=== PATIENT | female | born 1945 | race Caucasian/White ===

== ENCOUNTER 2024-08-25 18:29 | Observation (INO) ==
--- NOTE | 2024-08-25 18:46 | Emergency Department Note ---
Impression & Plan Syncope, Hypertension, Hypokalemia ED Provider Note NAME: MARIA DEL CARMEN RHODES AGE: 79 SEX: F : 1945 ARRIVES VIA: Ambulance INFORMANT: Patient ED PROVIDER(S): Maged Uribe DO CHIEF COMPLAINT: Syncope x 2 HPI: Patient is an 79-year-old female with a past medical history of hyperlipidemia and hypertension who presents to the ER for syncope x 2. Patient was sitting at dinner when this occurred. She notes overall she was not feeling well and per report of family she passed out twice. She denies any falls or trauma. No headache or change or loss of vision. No chest pain or shortness of breath preceding or following this incident. No belly pain. No nausea, vomiting, or diarrhea. No dysuria, urgency, or frequency. No other exacerbating or remitting factors. She did not feel sick to her stomach like she had to vomit or like she was going to get sick. She did not have to go to the bathroom. ADDITIONAL HISTORY OBTAINED: Per HPI Chronic Medical/Social Conditions Affecting Care: Per HPI PAST MEDICAL HISTORY:See Below PAST SURGICAL HISTORY:See Below FAMILY HISTORY:See Below SOCIAL HISTORY:See Below HOME MEDICATIONS:See Below ALLERGIES:See Below VITALS:See Below PHYSICAL EXAMINATION: GENERAL: Sitting up in bed, alert, well appearing, well nourished, no distress, non-toxic EYE EXAM: normal conjunctiva. PERRL and EOM's intact. OROPHARYNX: no exudate, no erythema, lips, buccal mucosa, and tongue normal and mucous membranes are moist NECK: supple, no nuchal rigidity, no adenopathy, non-tender LUNGS: Clear to auscultation. Normal chest wall mechanics HEART: no murmurs, S1 normal and S2 normal ABDOMEN: abdomen soft, non-tender, normo-active bowel sounds, no masses, no rebound or guarding. BACK: Back is symmetrical on inspection and there is no deformity, no midline tenderness, no CVA tenderness. SKIN: no rashes and no bruising UPPER EXTREMITIES: upper extremities are grossly normal. LOWER EXTREMITIES: No pitting edema. NEURO EXAM: Normal sensorium, cranial nerves II-XII intact, normal speech, no weakness of arms, no weakness of legs. No drift. Finger to nose intact. Gross sensation intact. MEDICAL DECISION MAKING: Patient is an 79-year-old female who presents ER for the above-stated complaint. IV was established and blood work was obtained. Labs show no significant leukocytosis or anemia. BMP with mild hypokalemia at 3.3. LFTs and bilirubin were unremarkable. Troponin was negative. Lipase was normal. Chest x-ray was clean. Patient was completely neurologically intact. With her age and 2 syncopal events without any real prodromal symptoms she was discussed with the hospitalist for further evaluation management treatment. Consults/Care Managements Discussions: Per [facility] Triage Nursing notes reviewed. Limited review of prior medical records performed Vital Signs: reviewed and remarkable for no significant abnormalities Differential diagnosis: Differential diagnosis includes etiologies such as vasovagal event, infection, hypoglycemia, electrolyte abnormalities, cardiac sources, intracerebral event, toxicologic, neurologic, as well as others were entertained. ER treatment provided: See below Diagnostics interpreted by me include EKG and cardiac monitoring as listed below: -Cardiac Monitoring: An order was placed for continuous cardiac monitoring. The monitor shows a rate of 80 with sinus rhythm. -ECG: Sinus rhythm rate 75 Normal axis No PVCs QTc 415 -Laboratory studies:Interpreted by me as stated above in MDM and shown below. Imaging studies: Xrays: As interpreted by me: Portable AP upright 1 view of the chest shows no focal infiltrate CTs show: none Procedures:none Critical Care: None Past Med/Surg History Problem List (Updated 08/26/24 @ 00:01 by Maged Uribe DO) Hypokalemia (Acute) Hypertension (Acute) Syncope (Acute) Social History Smoking Status: Former smoker Tobacco Type: Cigarettes Hx Alcohol Use: Yes Alcohol type: wine Hx Substance Use: No Preferred Language: Peruvian Communication Ability: Effective Investment Officer Required: No Beliefs That Will Affect Care: None Current Living Situation: Spouse Feels Safe at Home: Yes Safety Concerns: Feels Safe At This Time Assistive Devices: None Allergies Allergies Allergy/AdvReac Type Severity Reaction Status Date / Time No Known Allergies Allergy Verified 08/25/24 19:18 Home Meds Home Medications Medication Instructions Recorded Confirmed amlodipine 5 mg tablet 5 mg PO HS 08/25/24 08/25/24 atorvastatin 40 mg tablet 40 mg PO HS 08/25/24 08/25/24 cholecalciferol (vitamin D3) 25 25 mcg PO DAILY 08/25/24 08/25/24 mcg (1,000 unit) capsule (Vitamin D3) lisinopril 20 1 tab PO QAM 08/25/24 08/25/24 mg-hydrochlorothiazide 25 mg tablet Results & Data (ED) Vital Signs Vital Signs - 24 hr 08/25/24 18:35 08/25/24 18:39 08/25/24 20:12 Temperature 36.8 C Temperature Source Oral Pulse Rate 82 72 84 Pulse Rate from SpO2 Sensor 85 Respiratory Rate 18 18 Blood Pressure 140/104 H 140/79 Blood Pressure Mean 116 99 Pulse Oximetry 96 98 Oxygen Delivery Method Room Air Sepsis Recent Fever Within 48 Hours No Sepsis New/Unexplained Change in Mental Status No Sepsis Action Taken by Nursing No Action Required Laboratory Data 08/25/24 18:50 08/25/24 18:50 Lab Results 08/25/24 Range/Units 18:50 WBC 8.98 (4.8-10.8) K/ul RBC 4.67 (4.20-5.40) M/uL Hgb 13.5 (12.0-16.0) g/dl Hct 41.0 (37.0-47.0) % MCV 87.8 (80.0-100.0) fL MCH 28.9 (25.0-34.0) pg MCHC 32.9 (32.0-36.0) g/dL RDW Std Deviation 45.5 (36.4-46.3) fL RDW Coeff of Lachelle 14.1 (11.5-14.5) % Plt Count 302 (130-400) K/uL MPV 9.6 (9.4-12.4) fL Immature Gran % (Auto) 0.2 % Neut % (Auto) 57.3 % Lymph % (Auto) 31.3 % [place] % (Auto) 6.0 % Eos % (Auto) 3.6 % Baso % (Auto) 1.6 % Neut # (Auto) 5.15 (1.40-6.50) K/uL Lymph # (Auto) 2.81 (1.20-3.40) K/uL [place] # (Auto) 0.54 (0.11-0.59) K/uL Eos # (Auto) 0.32 (0.00-0.50) K/uL Baso # (Auto) 0.14 (0.00-0.20) K/uL Immature Gran # (Auto) 0.02 (0.01-0.20) K/uL Sodium 143 (136-145) mmol/L Potassium 3.3 L (3.5-5.1) mmol/L Chloride 106 (98-107) mmol/L Carbon Dioxide 28 (21-32) mmol/L Anion Gap 9 (3-11) BUN 29 H (6-23) mg/dl Creatinine 0.80 (0.6-1.2) mg/dl Est Cr Clr Drug Dosing 49.6 ml/min eGFR 73.98 BUN/Creatinine Ratio 36.3 H (10-20) Glucose 126 H (70-99(Fasting)) mg/dl Calcium 9.9 (8.6-10.3) mg/dl Total Bilirubin 0.6 (0.2-1.0) mg/dl AST 18 (13-39) U/L ALT 13 (7-52) U/L Alkaline Phosphatase 65 (34-104) U/L Troponin I High Sens 3.3 (0-14) pg/ml Total Protein 7.2 (6.0-8.3) gm/dl Albumin 4.2 (3.4-5.0) gm/dl Globulin 3.0 (2.5-4.0) gm/dl Albumin/Globulin Ratio 1.4 (0.9-2) Lipase 27 (11-82) U/L Administered Medications Amlodipine Besylate (Amlodipine Besylate 5 Mg Tab) 5 mg PO HS EMERSON Stop: 09/24/24 21:59 Last Admin: 08/25/24 23:43 Dose: 5 mg Documented By: JARRETT Atorvastatin Calcium (Atorvastatin 40 Mg Tab) 40 mg PO HS EMERSON Stop: 09/24/24 21:59 Last Admin: 08/25/24 23:43 Dose: 40 mg Documented By: JARRETT Sodium Chloride (Nss) 1,000 mls @ 80 mls/hr IV .[id number] EMERSON Stop: 08/26/24 10:29 Last Admin: 08/25/24 23:42 Dose: 80 mls/hr Documented By: JARRETT Discontinued Medications Potassium Chloride (Potassium Chloride Crtab 20 Meq Tabcr) 40 meq PO NOW STA Stop: 08/25/24 20:56 Last Admin: 08/25/24 21:16 Dose: 40 meq Documented By: LATONIAB Imaging Data Radiologist's Impression: Chest X-Ray 08/25/24 18:36 EXAM: Radiograph of the Chest 1 View INDICATION: Pain TECHNIQUE: Frontal view of the chest. COMPARISON: No relevant prior studies available. FINDINGS: Lungs and pleural spaces: Shallow inspiration with minimal vascular crowding. No pulmonary edema or consolidation. No pleural effusion or pneumothorax. Heart: Shape and configuration within normal limits allowing for technique. Mediastinum: Normal contour. Bones/joints: Degenerative changes noted in the scoliotic spine. No acute osseous abnormality noted. Soft tissues: No abnormality noted. No radiopaque foreign body noted. Vasculature: Ectatic aorta with mild calcification in the arch. Upper abdomen: No abnormality noted. IMPRESSION: No acute cardiopulmonary disease. ACT 112: N/A Electronically signed by Shakira Gentile 08-25-2024 7:46 PM Discharge Plan Visit Data Chief Complaint: Syncope Stated Complaint: SYNCOPE ED Provider: Maged Uribe Discharge Problem: Syncope, Hypertension, Hypokalemia Patient Disposition: Admitted As Inpatient Condition: Fair Discharge Instructions Interventions: ED Discharge Assessment Last Done: 08/25/24 21:17 Discharge Problem: Syncope Qualifiers: Syncope type: unspecified Qualified Code(s): R55 - Syncope and collapse Hypertension Qualifiers: Hypertension type: unspecified Qualified Code(s): I10 - Essential (primary) hypertension
[2024-08-25 19:03] LABS: Basophils # (auto) 0.14 K/uL (0.00-0.20); Basophils % (auto) 1.6 %; Eosinophils # (auto) 0.32 K/uL (0.00-0.50); Eosinophils % (auto) 3.6 %; Hemoglobin 13.5 g/dl (12.0-16.0); Immature Granulocytes # (auto) 0.02 K/uL (0.01-0.20); Immature Granulocytes % (auto) 0.2 %; Lymphocytes # (auto) 2.81 K/uL (1.20-3.40); Lymphocytes % (auto) 31.3 %; Mean Corpuscular Hemoglobin 28.9 pg (25.0-34.0); Mean Corpuscular Hgb Conc 32.9 g/dL (32.0-36.0); Mean Corpuscular Volume 87.8 fL (80.0-100.0); Mean Platelet Volume 9.6 fL (9.4-12.4); Monocytes # (auto) 0.54 K/uL (0.11-0.59); Neutrophils # (auto) 5.15 K/uL (1.40-6.50); Neutrophils % (auto) 57.3 %; Platelet Count 302 K/uL (130-400); RDW Coefficient of Variation 14.1 % (11.5-14.5); RDW Standard Deviation 45.5 fL (36.4-46.3); Red Blood Count 4.67 M/uL (4.20-5.40); White Blood Count 8.98 K/ul (4.8-10.8)
[2024-08-25 19:20] LABS: Albumin Globulin Ratio 1.4 (0.9-2); Albumin Level 4.2 gm/dl (3.4-5.0); BUN Creatinine Ratio 36.3 (10-20); Bilirubin,Total 0.6 mg/dl (0.2-1.0); Calcium 9.9 mg/dl (8.6-10.3); Creatinine Clr Calc Pharmacy 49.6 ml/min; Potassium 3.3 mmol/L (3.5-5.1); Total Protein 7.2 gm/dl (6.0-8.3)
[2024-08-25 19:27] LABS: Troponin I High Sensitivity 3.3 pg/ml (0-14)
--- NOTE | 2024-08-25 19:47 | XRay Report ---
EXAM: Radiograph of the Chest 1 View INDICATION: Pain TECHNIQUE: Frontal view of the chest. COMPARISON: No relevant prior studies available. FINDINGS: Lungs and pleural spaces: Shallow inspiration with minimal vascular crowding. No pulmonary edema or consolidation. No pleural effusion or pneumothorax. Heart: Shape and configuration within normal limits allowing for technique. Mediastinum: Normal contour. Bones/joints: Degenerative changes noted in the scoliotic spine. No acute osseous abnormality noted. Soft tissues: No abnormality noted. No radiopaque foreign body noted. Vasculature: Ectatic aorta with mild calcification in the arch. Upper abdomen: No abnormality noted. IMPRESSION: No acute cardiopulmonary disease. ACT 112: N/A Electronically signed by Shakira Gentile 08-25-2024 7:46 PM
--- NOTE | 2024-08-25 20:48 | History & Physical Report ---
Date of Service August 25, 2024 Assessment & Plan (1) Syncope: Plan: 79-year-old female with past medical history significant for hypertension, hyperlipidemia comes with syncope. Patient is from [place]. She is visiting [employer] for her granddaughter's graduation. Patient says last night her defibrillator went off couple of times and she could not sleep well. And in the morning around 9 AM they drove to [place] for about 4 hours. She thinks did not drink much water. She think she was tired. Around 5:30 PM she sat down for eating when she felt lightheaded and did not feel good. She leaned forward and passed out. Patient's says her daughter thought that she passed out twice for few 5 seconds each. When she came back she was fine.. She was answering all questions. She was able to walk to the stretcher. Currently feeling better. During the episode no chest pain or palpitations. No shortness of breath. No nausea. Currently no dizziness. Vision is okay. No earache. No runny nose. No sore throat. No cough. Eating and drinking okay. No abdominal pain. No rash. Normal bowel and bladder movements. Hemodynamics are okay. Syncope EKG okay Labs okay except for mild hypokalemia Will monitor on telemetry Gentle fluids Check orthostatics Will follow serial enzymes and echo Cardiac consult in a.m. Hypertension Continue home medications of amlodipine and lisinopril/hydrochlorothiazide Will monitor Hypokalemia Potassium 3.3 Will replace Follow labs Hyperlipidemia On statin DVT prophylaxis SCDs Disposition Observation telemetry Full code History of Present Illness Chief Complaint: Syncope Primary Care Provider: Laron Wright 79-year-old female with past medical history significant for hypertension, hyperlipidemia comes with syncope. Patient is from [place]. She is visiting [employer] for her granddaughter's graduation. Patient says last night her defibrillator went off couple of times and she could not sleep well. And in the morning around 9 AM they drove to [place] for about 4 hours. She thinks did not drink much water. She think she was tired. Around 5:30 PM she sat down for eating when she felt lightheaded and did not feel good. She leaned forward and passed out. Patient's says her daughter thought that she passed out twice for few 5 seconds each. When she came back she was fine.. She was answering all questions. She was able to walk to the stretcher. Currently feeling better. During the episode no chest pain or palpitations. No shortness of breath. No nausea. Currently no dizziness. Vision is okay. No earache. No runny nose. No sore throat. No cough. Eating and drinking okay. No abdominal pain. No rash. Normal bowel and bladder movements. Hemodynamics are okay. Past medical history as mentioned above Past surgical history. Right carpal tunnel surgery. Social history. Smoked 5 to 6 cigarettes daily for 37 years. Quit smoking 27 years ago. Alcohol occasional. Family history. Mother had hypertension. Stroke. Obesity. Allergies Allergy/AdvReac Type Severity Reaction Status Date / Time No Known Allergies Allergy Verified 08/25/24 19:18 Home Medications Medication Instructions Recorded Confirmed Type amlodipine 5 mg tablet 5 mg PO HS 08/25/24 08/25/24 History atorvastatin 40 mg tablet 40 mg PO HS 08/25/24 08/25/24 History cholecalciferol (vitamin D3) 25 25 mcg PO DAILY 08/25/24 08/25/24 History mcg (1,000 unit) capsule (Vitamin D3) lisinopril 20 1 tab PO QAM 08/25/24 08/25/24 History mg-hydrochlorothiazide 25 mg tablet Past Med/Surg History Problem List (Updated 08/26/24 @ 00:01 by Maged Uribe DO) Hypokalemia (Acute) Hypertension (Acute) Syncope (Acute) Social History Smoking Status: Former smoker Tobacco Type: Cigarettes Hx Alcohol Use: Yes Alcohol type: wine Hx Substance Use: No Preferred Language: Polish Communication Ability: Effective Chain Sales Consultant Required: No Beliefs That Will Affect Care: None Current Living Situation: Spouse Feels Safe at Home: Yes Safety Concerns: Feels Safe At This Time Assistive Devices: None Review of Systems Review of Systems: All systems reviewed & are unremarkable except as noted in HPI & below Physical Exam Physical Exam: General- Not in distress. Head- atraumatic Eyes- PERRL. ENT- oropharynx clear Neck- supple, no JVD. Lungs- clear to auscultation no wheezing or crackles Heart- regular rate and rhythm; no murmur, no gallop. Abdomen- normal bowel sounds, soft, nontender, no distension Extremities- no pretibial edema, no erythema seen Neuro- alert, oriented PERRL, no facial palsy; no dysarthria; moves extremities Results & Data Results & Data Vital Signs (Past 12 Hours) Vital Signs Temp Pulse Resp BP Pulse Ox O2 Del Method 08/25/24 18:39 72 08/25/24 18:35 36.8 C 82 18 140/104 H 96 Room Air Diagnostic Findings Laboratory Results WBC 8.98 K/ul (4.8-10.8) 08/25/24 18:50 RBC 4.67 M/uL (4.20-5.40) 08/25/24 18:50 Hgb 13.5 g/dl (12.0-16.0) 08/25/24 18:50 Hct 41.0 % (37.0-47.0) 08/25/24 18:50 MCV 87.8 fL (80.0-100.0) 08/25/24 18:50 MCH 28.9 pg (25.0-34.0) 08/25/24 18:50 MCHC 32.9 g/dL (32.0-36.0) 08/25/24 18:50 RDW Std Deviation 45.5 fL (36.4-46.3) 08/25/24 18:50 RDW Coeff of Lachelle 14.1 % (11.5-14.5) 08/25/24 18:50 Plt Count 302 K/uL (130-400) 08/25/24 18:50 MPV 9.6 fL (9.4-12.4) 08/25/24 18:50 Immature Gran % (Auto) 0.2 % 08/25/24 18:50 Neut % (Auto) 57.3 % 08/25/24 18:50 Lymph % (Auto) 31.3 % 08/25/24 18:50 [place] % (Auto) 6.0 % 08/25/24 18:50 Eos % (Auto) 3.6 % 08/25/24 18:50 Baso % (Auto) 1.6 % 08/25/24 18:50 Neut # (Auto) 5.15 K/uL (1.40-6.50) 08/25/24 18:50 Lymph # (Auto) 2.81 K/uL (1.20-3.40) 08/25/24 18:50 [place] # (Auto) 0.54 K/uL (0.11-0.59) 08/25/24 18:50 Eos # (Auto) 0.32 K/uL (0.00-0.50) 08/25/24 18:50 Baso # (Auto) 0.14 K/uL (0.00-0.20) 08/25/24 18:50 Immature Gran # (Auto) 0.02 K/uL (0.01-0.20) 08/25/24 18:50 Sodium 143 mmol/L (136-145) 08/25/24 18:50 Potassium 3.3 mmol/L (3.5-5.1) L 08/25/24 18:50 Chloride 106 mmol/L (98-107) 08/25/24 18:50 Carbon Dioxide 28 mmol/L (21-32) 08/25/24 18:50 Anion Gap 9 (3-11) 08/25/24 18:50 BUN 29 mg/dl (6-23) H 08/25/24 18:50 Creatinine 0.80 mg/dl (0.6-1.2) 08/25/24 18:50 Est Cr Clr Drug Dosing 49.6 ml/min 08/25/24 18:50 eGFR 73.98 08/25/24 18:50 BUN/Creatinine Ratio 36.3 (10-20) H 08/25/24 18:50 Glucose 126 mg/dl (70-99(Fasting)) H 08/25/24 18:50 Calcium 9.9 mg/dl (8.6-10.3) 08/25/24 18:50 Total Bilirubin 0.6 mg/dl (0.2-1.0) 08/25/24 18:50 AST 18 U/L (13-39) 08/25/24 18:50 ALT 13 U/L (7-52) 08/25/24 18:50 Alkaline Phosphatase 65 U/L (34-104) 08/25/24 18:50 Troponin I High Sens 3.3 pg/ml (0-14) 08/25/24 18:50 Total Protein 7.2 gm/dl (6.0-8.3) 08/25/24 18:50 Albumin 4.2 gm/dl (3.4-5.0) 08/25/24 18:50 Globulin 3.0 gm/dl (2.5-4.0) 08/25/24 18:50 Albumin/Globulin Ratio 1.4 (0.9-2) 08/25/24 18:50 Lipase 27 U/L (11-82) 08/25/24 18:50 Impressions Chest X-Ray 08/25/24 18:36 EXAM: Radiograph of the Chest 1 View INDICATION: Pain TECHNIQUE: Frontal view of the chest. COMPARISON: No relevant prior studies available. FINDINGS: Lungs and pleural spaces: Shallow inspiration with minimal vascular crowding. No pulmonary edema or consolidation. No pleural effusion or pneumothorax. Heart: Shape and configuration within normal limits allowing for technique. Mediastinum: Normal contour. Bones/joints: Degenerative changes noted in the scoliotic spine. No acute osseous abnormality noted. Soft tissues: No abnormality noted. No radiopaque foreign body noted. Vasculature: Ectatic aorta with mild calcification in the arch. Upper abdomen: No abnormality noted. IMPRESSION: No acute cardiopulmonary disease. ACT 112: N/A Electronically signed by Shakira Gentile 08-25-2024 7:46 PM ECG Additional Comments: ECG. Normal sinus rhythm rate of 75. Nonspecific ST abnormality. QTc 415. Code Status & VTE Plan VTE Prophylaxis Plan VTE Prophylaxis will be ordered: Yes
[2024-08-25] MEDS: POTASSIUM CHLORIDE CRTAB 20 MEQ TABCR PO STA (21:16)
[2024-08-25] MEDS ORDERED: NITROGLYCERIN SL 0.4 MG/TAB TAB SL PRN (22:00)
[2024-08-25] MEDS ORDERED: ACETAMINOPHEN 325 MG TAB PO PRN (22:00)
[2024-08-25] MEDS: SODIUM CHLORIDE 0.9% 1,000 ML IV SCH (23:42)
[2024-08-25] MEDS: ATORVASTATIN 40 MG TAB PO SCH (23:43)
[2024-08-25] MEDS: amLODIPine BESYLATE 5 MG TAB PO SCH (23:43)
[2024-08-26 06:41] LABS: Basophils # (auto) 0.09 K/uL (0.00-0.20); Basophils % (auto) 1.2 %; Eosinophils # (auto) 0.27 K/uL (0.00-0.50); Eosinophils % (auto) 3.7 %; Hematocrit (blood only) 38.1 % (37.0-47.0); Hemoglobin 12.7 g/dl (12.0-16.0); Immature Granulocytes # (auto) 0.03 K/uL (0.01-0.20); Immature Granulocytes % (auto) 0.4 %; Lymphocytes # (auto) 2.27 K/uL (1.20-3.40); Lymphocytes % (auto) 31.3 %; Mean Corpuscular Hemoglobin 29.1 pg (25.0-34.0); Mean Corpuscular Hgb Conc 33.3 g/dL (32.0-36.0); Mean Corpuscular Volume 87.4 fL (80.0-100.0); Mean Platelet Volume 10.2 fL (9.4-12.4); Monocytes # (auto) 0.63 K/uL (0.11-0.59); Monocytes % (auto) 8.7 %; Neutrophils # (auto) 3.97 K/uL (1.40-6.50); Neutrophils % (auto) 54.7 %; Platelet Count 294 K/uL (130-400); Red Blood Count 4.36 M/uL (4.20-5.40); White Blood Count 7.26 K/ul (4.8-10.8)
[2024-08-26 07:03] LABS: BUN Creatinine Ratio 37.1 (10-20); Calcium 9.6 mg/dl (8.6-10.3); Creatinine Clr Calc Pharmacy 63.2 ml/min; Magnesium 1.9 mg/dl (1.7-2.4); Potassium 3.7 mmol/L (3.5-5.1)
[2024-08-26 07:09] LABS: Troponin I High Sensitivity 3.9 pg/ml (0-14)
--- NOTE | 2024-08-26 07:10 | Electrocardiogram Report ---
Test Reason : Blood Pressure : */* mmHG Vent. Rate : 75 BPM Atrial Rate : 75 BPM P-R Int : 148 ms QRS Dur : 86 ms QT Int : 372 ms P-R-T Axes : 57 47 61 degrees QTcB Int : 415 ms Normal sinus rhythm Nonspecific ST abnormality Abnormal ECG No previous ECGs available Confirmed by Willis Thompson ([id number]) on 08/26/2024 7:10:32 AM Referred By: REFERRED SELF Confirmed By: Willis Thompson
[2024-08-26 07:25] VITALS: TEMP 97.9
[2024-08-26] MEDS: LISINOPRIL/HCTZ 20/25MG 1 TAB PO SCH (08:55)
[2024-08-26] MEDS: CHOLECALCIFEROL 25 MCG (1000 UNITS) TAB PO SCH (08:55)
[2024-08-26] MEDS: POTASSIUM CHLORIDE CRTAB 20 MEQ TABCR PO STA (09:25)
--- NOTE | 2024-08-26 10:03 | Hospitalist Progress Note ---
Date of Service August 26, 2024 Assessment & Plan (1) Syncope: Plan: 79-year-old female with past medical history significant for hypertension, hyperlipidemia comes with syncope. Patient is from [place]. She is visiting [employer] for her granddaughter's graduation. Patient says last night her defibrillator went off couple of times and she could not sleep well. And in the morning around 9 AM they drove to [employer] for about 4 hours. She thinks did not drink much water. She think she was tired. Around 5:30 PM she sat down for eating when she felt lightheaded and did not feel good. She leaned forward and passed out. Patient's says her daughter thought that she passed out twice for few 5 seconds each. When she came back she was fine.. She was answering all questions. She was able to walk to the stretcher. Currently feeling better. During the episode no chest pain or palpitations. No shortness of breath. No nausea. Currently no dizziness. Vision is okay. No earache. No runny nose. No sore throat. No cough. Eating and drinking okay. No abdominal pain. No rash. Normal bowel and bladder movements. Hemodynamics are okay. Syncope- likely secondary to dehydration and not been eating and drinking enough and is complicated by lack of sleep the night before Relevant investigations including EKG labs are unremarkable Orthostatic vitals are unremarkable too and the monitor did not show any arrhythmias Has been feeling much better this morning with administration of intravenous fluid Ambulating in the room and in the hallway without any difficulties She definitely wants to go home this afternoon Echo of the heart was unremarkable Discussed with the and he wants to take her home today She has been feeling much better and does not have any symptoms whatsoever She was advised to see her PCP/grocery clerk stocking within next 7 days Was advised to drink more fluid to avoid dehydration Hypertension Continue home medications of amlodipine and lisinopril/hydrochlorothiazide Blood pressure remains normal Hypokalemia Potassium 3.3 Her electrolytes and kidney function are normal too Hyperlipidemia On statin DVT prophylaxis SCDs Disposition Observation telemetry Full code Admission and Anticipated Discharge Date Admission Date: August 25, 2024 Subjective 08/26/2024 The patient was seen and examined in telemetry unit She was admitted with possible syncopal episode likely secondary to dehydration She has been stable since admission and denies any symptoms this morning Review of Systems Review of Systems: All systems reviewed and are unremarkable except as noted below Physical Exam Physical Exam: Lying in bed without any apparent distress and is very anxious to be discharged Constitutional: well developed, well nourished and average body habitus; not ill appearing Eyes: PERRL, conjunctivae normal, anicteric sclerae ENMT: external ear and nose normal, oropharynx normal Neck: trachea midline, no thyromegaly Respiratory: no respiratory distress Auscultation: lungs clear to auscultation bilaterally Cardiovascular: Rate/Rhythm: regular rate and regular rhythm; not tachycardic Heart Sounds: normal S1 and normal S2; no murmur Extremities: no edema Gastrointestinal (Abdomen): Inspection/Auscultation: normal bowel sounds; abdomen not distended Percussion/Palpation: abdomen soft; abdomen nontender Musculoskeletal: No acute arthritis involving any of the joints Neurologic: normal touch/pain/proprioception and moves all extremities; no focal motor deficits Psychiatric: A+Ox3, euthymic affect Lymphatic: no cervical or axillary lymphadenopathy Results & Data Results & Data Vital Signs (Past 12 Hours) Vital Signs Temp Pulse Pulse Resp BP Pulse Ox Pulse Ox 08/26/24 07:22 36.6 C 92 H 18 142/72 H 95 08/26/24 07:10 90 08/26/24 03:52 36.8 C 90 17 144/64 H 92 08/26/24 00:17 36.7 C 93 H 17 143/72 H 95 08/25/24 22:08 36.6 C 92 H 18 174/51 H 97 08/25/24 22:00 97 O2 Del Method O2 Del Method 08/26/24 07:22 Room Air 08/26/24 07:10 08/26/24 03:52 Room Air 08/26/24 00:17 Room Air 08/25/24 22:08 Room Air 08/25/24 22:00 Room Air Laboratory Results Short CBC 08/25/24 08/26/24 Range/Units 18:50 05:29 WBC 8.98 7.26 (4.8-10.8) K/ul Hgb 13.5 12.7 (12.0-16.0) g/dl Hct 41.0 38.1 (37.0-47.0) % Plt Count 302 294 (130-400) K/uL BMP 08/25/24 08/26/24 18:50 05:29 Sodium 143 144 Potassium 3.3 L 3.7 Chloride 106 112 H Carbon Dioxide 28 27 BUN 29 H 23 Creatinine 0.80 0.62 Glucose 126 H 95 Calcium 9.9 9.6 Liver Function 08/25/24 Range/Units 18:50 Total Bilirubin 0.6 (0.2-1.0) mg/dl AST 18 (13-39) U/L ALT 13 (7-52) U/L Alkaline Phosphatase 65 (34-104) U/L Albumin 4.2 (3.4-5.0) gm/dl Medications Administered Current Inpatient Medications Acetaminophen (Acetaminophen 325 Mg Tab) 650 mg PO Q4H PRN PRN Reason: Pain or Fever Stop: 09/24/24 21:59 Amlodipine Besylate (Amlodipine Besylate 5 Mg Tab) 5 mg PO HS EMERSON Stop: 09/24/24 21:59 Last Admin: 08/25/24 23:43 Dose: 5 mg Atorvastatin Calcium (Atorvastatin 40 Mg Tab) 40 mg PO HS EMERSON Stop: 09/24/24 21:59 Last Admin: 08/25/24 23:43 Dose: 40 mg Lisinopril/HCTZ (Lisinopril/Hctz 20/25mg 1 Tab) 1 tab PO QAM EMERSON Stop: 09/25/24 08:59 Last Admin: 08/26/24 08:55 Dose: 1 tab Sodium Chloride (Nss) 1,000 mls @ 125 mls/hr IV .Q8H EMERSON Stop: 08/27/24 01:56 Last Admin: 08/26/24 09:30 Dose: 125 mls/hr Nitroglycerin (Nitroglycerin Sl 0.4 Mg/Tab Tab) 0.4 mg SL Q5M PRN PRN Reason: Chest Pain Stop: 09/24/24 21:59 Vitamin D (Cholecalciferol 25 Mcg (1000 Units) Tab) 25 mcg PO DAILY EMERSON Stop: 09/25/24 08:59 Last Admin: 08/26/24 08:55 Dose: 25 mcg (1) Syncope Syncope type: unspecified Qualified Code(s): R55 - Syncope and collapse
[2024-08-26 10:54] VITALS: BP 139/80; PULSE 91; RESP 17; O2SAT 96
--- NOTE | 2024-08-26 13:43 | Discharge Summary ---
Date of Service August 26, 2024 Admission HPI Per Admitting Provider 79-year-old female with past medical history significant for hypertension, hyperlipidemia comes with syncope. Patient is from [place]. She is visiting [place] for her granddaughter's graduation. Patient says last night her defibrillator went off couple of times and she could not sleep well. And in the morning around 9 [address] they drove to [place] for about 4 hours. She thinks did not drink much water. She think she was tired. Around 5:30 PM she sat down for eating when she felt lightheaded and did not feel good. She leaned forward and passed out. Patient's says her daughter thought that she passed out twice for few 5 seconds each. When she came back she was fine.. She was answering all questions. She was able to walk to the stretcher. Currently feeling better. During the episode no chest pain or palpitations. No shortness of breath. No nausea. Currently no dizziness. Vision is okay. No earache. No runny nose. No sore throat. No cough. Eating and drinking okay. No ab dominal pain. No rash. Normal bowel and bladder movements. Hemodynamics are okay. Past medical history as mentioned above Past surgical history. Right carpal tunnel surgery. Social history. Smoked 5 to 6 cigarettes daily for 37 years. Quit smoking 27 years ago. Alcohol occasional. Family history. Mother had hypertension. Stroke. Obesity. Admission Exam Per Admitting Provider Physical Exam: General- Not in distress. Head- atraumatic Eyes- PERRL. ENT- oropharynx clear Neck- supple, no JVD. Lungs- clear to auscultation no wheezing or crackles Heart- regular rate and rhythm; no murmur, no gallop. Abdomen- normal bowel sounds, soft, nontender, no distension Extremities- no pretibial edema, no erythema seen Neuro- alert, oriented PERRL, no facial palsy; no dysarthria; moves extremities Principal Diagnosis Syncope likely vasovagal Discharge Exam Lying in bed without any apparent distress and is very anxious to be discharged Constitutional well developed, well nourished and average body habitus; not ill appearing Eyes PERRL, conjunctivae normal, anicteric sclerae ENMT external ear and nose normal, oropharynx normal Neck trachea midline, no thyromegaly Respiratory no respiratory distress Auscultation: lungs clear to auscultation bilaterally Cardiovascular Rate/Rhythm: regular rate and regular rhythm; not tachycardic Heart Sounds: normal S1 and normal S2; no murmur Extremities: no edema Gastrointestinal (Abdomen) Inspection/Auscultation: normal bowel sounds; abdomen not distended Percussion/Palpation: abdomen soft; abdomen nontender Neurologic normal touch/pain/proprioception and moves all extremities; no focal motor deficits Psychiatric A+Ox3, euthymic affect Lymphatic no cervical or axillary lymphadenopathy Discharge Data Allergies Allergy/AdvReac Type Severity Reaction Status Date / Time No Known Allergies Allergy Verified 08/25/24 19:18 Consultations 08/25/24 19:49 ED Decision to Admit Stat Hospital Course (1) Syncope: 79-year-old female with past medical history significant for hypertension, hyperlipidemia comes with syncope. Patient is from [place]. She is visiting [place] for her granddaughter's graduation. Patient says last night her defibrillator went off couple of times and she could not sleep well. And in the morning around 9 AM they drove to [place] for about 4 hours. She thinks did not drink much water. She think she was tired. Around 5:30 PM she sat down for eating when she felt lightheaded and did not feel good. She leaned forward and passed out. Patient's says her daughter thought that she passed out twice for few 5 seconds each. When she came back she was fine.. She was answering all questions. She was able to walk to the stretcher. Currently feeling better. During the episode no chest pain or palpitations. No shortness of breath. No nausea. Currently no dizziness. Vision is okay. No earache. No runny nose. No sore throat. No cough. Eating and drinking okay. No abdominal pain. No rash. Normal bowel and bladder movements. Hemodynamics are okay. Syncope- likely secondary to dehydration and not been eating and drinking enough and is complicated by lack of sleep the night before Relevant investigations including EKG labs are unremarkable Orthostatic vitals are unremarkable too and the monitor did not show any arrhythmias Has been feeling much better this morning with administration of intravenous fluid Ambulating in the room and in the hallway without any difficulties She definitely wants to go home this afternoon Echo - mild concentric LVH, basal septum is thickened and angulated consistent with sigmoid septum, LV wall motion is normal, LV systolic function is normal with EF of 60 to 65%, there is mild regurgitation, Doppler findings do not sug gest pulmonary hypertension and grade 1 diastolic dysfunction Discussed with the and he wants to take her home today She has been feeling much better and does not have any symptoms whatsoever She was advised to see her PCP/chemotherapist within next 7 days Was advised to drink more fluid to avoid dehydration Hypertension Continue home medications of amlodipine and lisinopril/hydrochlorothiazide Blood pressure remains normal Hypokalemia Potassium 3.3 Her electrolytes and kidney function are normal too Hyperlipidemia On statin DVT prophylaxis SCDs Disposition Observation telemetry Full code Total Time Total Time Spent Total Time Spent (In Minutes): 35 Minutes Discharge Plan Discharge Items Patient Disposition: Home - Self-Care Reason For Visit: SYNCOPE Discharge Diagnosis: Syncope likely vasovagal Condition on Discharge: Good Activity: Resume your previous activity Non-emergency contact: Primary Care Provider Call non-emergency contact if: you have any medication questions and your symptoms worsen Follow-up/Referrals: Laron Wright [Other] ( Please make an appointment with your PCP within 7 days) Diet: Heart Healthy Addtl Attending Provider Instructions: Please take precaution to avoid falls Try to drink more fluid to avoid dehydration Take your medications as advised Please make an appointment with your PCP within 7 days Pending Studies at Discharge: No Stand-Alone Forms: [facility], Smoking Cessation Medications and DC Order Prescriptions: Continued atorvastatin 40 mg tablet 40 mg PO HS amlodipine 5 mg tablet 5 mg PO HS lisinopril-hydrochlorothiazide 20-25 mg tablet 1 tab PO QAM cholecalciferol (vitamin D3) [Vitamin D3] 25 mcg (1,000 unit) Capsule 25 mcg PO DAILY Discharge Orders: Discharge Order (Routine); Ordered 08/26/24 Ordered By: Renea Mcclendon Admission Data Admit Date/Time: 08/25/24 20:45 Attending Provider: Renea Mcclendon Admit Provider: Lan Loomis Primary Care Provider: Laron Wright Other Providers: Lan Loomis
--- NOTE | 2024-08-27 12:21 | Electrocardiogram Report ---
Test Reason : Blood Pressure : */* mmHG Vent. Rate : 101 BPM Atrial Rate : 101 BPM P-R Int : 170 ms QRS Dur : 84 ms QT Int : 338 ms P-R-T Axes : 61 57 51 degrees QTcB Int : 438 ms Sinus tachycardia Otherwise normal ECG When compared with ECG of 25-Aug-2024 18:35, No significant change was found Confirmed by Ben Santana ([id number]) on 08/27/2024 12:20:35 PM Referred By: REFERRED SELF Confirmed By: Ben Santana
== END 2024-08-26 14:56 | disposition home or self-care (01) ==
LOC: ED 18:29 → 4W 18:29